=== PATIENT | male | born 1990 | race African-American/Black ===

== ENCOUNTER 2020-02-19 11:36 | Inpatient (IN) | payer OTHER ==
--- NOTE | 2020-02-19 12:23 | BHS.RME ---
Substance Use & Tx History - Substance Use History Alcohol Substance amount: 1/5 rum and 3 x 24 ounce beer Frequency of use: Daily Substance route: Oral Date of Last Use: 02/17/20 - Last Treatment Date of last treatment: this is his first presentation to a detox Physical/Psych/Mental Status - Behavior General Behavior: Increased activity (restlessness, agitation) Eye Contact: Normal - Cooperativeness Cooperativeness: Cooperative - Thinking Thought Processes: Tight Thought content: Future oriented Perceptions: Hallucinations (auditory, visual, olfactory) - Physical Health Problems Is patient presently having any pain?: No Does patient presently have any injuries (include location): No Does patient currently have a fever: No CIWA Nausea/Vomitin-No Nausea/No Vomiting Muscle Tremors: 4-Moderate,w/Arms Extend Anxiety: 3 Agitation: 1-Slight > Activity Paroxysmal Sweats: 3 Orientation: 1-Uncertain about Date Tacttile Disturbances: 1-Very Mild Itch/Numbness Auditory Disturbances: 0-None Visual Disturbances: 0-None Headache: 0-None Present CIWA-Ar Total Score: 13
[2020-02-19 12:56] VITALS: BMI 29.9
--- NOTE | 2020-02-19 13:11 | HP ---
CIWA Score Nausea/Vomitin-No Nausea/No Vomiting Muscle Tremors: 4-Moderate,w/Arms Extend Anxiety: 3 Agitation: 1-Slight > Activity Paroxysmal Sweats: 3 Orientation: 1-Uncertain about Date Tacttile Disturbances: 1-Very Mild Itch/Numbness Auditory Disturbances: 0-None Visual Disturbances: 0-None Headache: 0-None Present CIWA-Ar Total Score: 13 - Admission Criteria OASAS Guidelines: Admission for Medically Managed Detox: Requires at least one of the followin. CIWA greater than 12 2. Seizures within the past 24 hours 3. Delirium tremens within the past 24 hours 4. Hallucinations within the past 24 hours 5. Acute intervention needed for co occurring medical disorder 6. Acute intervention needed for co occurring psychiatric disorder 7. Severe withdrawal that cannot be handled at a lower level of care (continued vomiting, continued diarrhea, abnormal vital signs) requiring intravenous medication and/or fluids 8. Admitting History and Physical - Admission Chief Complaint: Patient is a 29 year old male with history of eczema alcohol use disorder, presents for detox. History of Present Illness: Patient is a 29 year old male with history of eczema alcohol use disorder, presents for detox. PMH: eczema (hands, and lower extremities) PSH: denies Social: lives with parents in house, in [facility]. Psych: endorses history of anxiety, depression, visual hallucinations (dark shadow -ongoing for past two years). Legal: denies This is patient's first presentation for detox at this facility. - Substance Use History Alcohol Substance amount: 1/5 rum and 3 x 24 ounce beer Frequency of use: Daily Substance route: Oral Date of Last Use: 02/17/20 - Last Treatment Date of last treatment: this is his first presentation to a detox History Source: Patient Limitations to Obtaining History: No Limitations - Past Medical History Dermatology: Yes: Eczema - Smoking History Smoking history: Current some day smoker Have you smoked in the past 12 months: No - Alcohol/Substance Use Hx Alcohol Use: Yes - Social History Usual Living Arrangement: Yes: With Parent ADL: Independent History of Recent Travel: No Admission ROS [facility] - [facility] Chief Complaint: Patient is a 29 year old male with history of eczema alcohol use disorder, presents for detox. Allergies/Adverse Reactions: Allergies Allergy/AdvReac Type Severity Reaction Status Date / Time No Known Allergies Allergy Verified 02/19/20 12:52 Exam Limitations: No Limitations - Ebola screening Have you traveled outside of the country in the last 21 days: No Have you been sick,other than usual withdrawal symptoms: No Do you have a fever: No - Review of Systems Constitutional: No Symptoms Reported EENT: denies: Blurred Vision, Hearing Loss Respiratory: denies: Cough, Shortness of Breath Cardiac: denies: Chest Pain, Palpitations GI: denies: Nausea, Vomiting, Abdominal cramping : denies: Burning, Dysuria Musculoskeletal: denies: Back Pain, Joint Pain Integumentary: reports: Other (eczema bilateral hands, lower extremities) Neuro: denies: Headache, Numbness, Paresthesia, Weakness Hematology: denies: Blood Clots, Easy Bleeding Psychiatric: reports: Anxious, Depressed, other (denies suicidal, homicidal ideation) Patient History - Patient Medical History Hx Asthma: Yes (CHILDHOOD) Hx Chronic Obstructive Pulmonary Disease (COPD): No Hx Cancer: No Hx Cardiac Disorders: No Hx Congestive Heart Failure: No Hx Hypertension: No Hx Hypercholesterolemia: No Hx Pacemaker: No HX Cerebrovascular Accident: No Hx Seizures: Yes (ALCOHOL RLT 1 YR AGO) Hx Diabetes: No Hx Gastrointestinal Disorders: No Hx Genitourinary Disorders: No Hx Sexually Transmitted Disorders: No Hx Renal Disease (ESRD): No Hx Thyroid Disease: No Hx Human Immunodeficiency Virus (HIV): No Hx Hepatitis C: No Hx Depression: Yes Hx Suicide Attempt: No Hx Bipolar Disorder: No Hx Schizophrenia: No - Patient Surgical History Past Surgical History: No Hx Neurologic Surgery: No Hx Cataract Extraction: No Hx Cardiac Surgery: No Hx Lung Surgery: No Hx Breast Surgery: No Hx Breast Biopsy: No Hx Abdominal Surgery: No Hx Appendectomy: No Hx Cholecystectomy: No Hx Genitourinary Surgery: No Hx Section: No Hx Orthopedic Surgery: No Anesthesia Reaction: No - PPD History Previous Implant?: No Implanted On Prior R Admission?: No PPD to be Administered?: Yes - Reproductive History Patient is a Female of Child Bearing Age (11 -55 yrs old): No - Smoking Cessation Smoking history: Current some day smoker Have you smoked in the past 12 months: Yes Cigars Per Day: 1 Hx Chewing Tobacco Use: No Initiated information on smoking cessation: Yes 'Breaking Loose' booklet given: 02/19/20 - Substance & Tx. History Hx Alcohol Use: Yes Hx Substance Use: No - Substances abused Alcohol Substance route: Oral Frequency: Daily Amount used: RUM HALF PT AND BEERS 3X 24OZ Age of first use: 14 Date of last use: 02/17/20 Admission Physical Exam [facility] - Vital Signs Vital Signs: Vital Signs - 24 hr 02/19/20 12:52 Temperature 98.0 F Pulse Rate 109 H Respiratory 19 Rate Blood Pressure 147/83 - Physical General Appearance: Yes: Mild Distress, Anxious HEENTM: Yes: Normocephalic, Normal Voice, JUAN Respiratory: Yes: Lungs Clear, No Respiratory Distress, No Accessory Muscle Use Neck: Yes: Supple Breast: Yes: Breast Exam Deferred Cardiology: Yes: Regular Rhythm, Regular Rate, S1, S2 Abdominal: Yes: Normal Bowel Sounds, Non Tender, Flat, Soft Musculoskeletal: Yes: Within Normal Limits, full range of Motion Extremities: Yes: Within Normal Limits, Normal Range of Motion Neurological: Yes: waxer II-XII NML intact, Alert, Motor Strength 5/5 Integumentary: Yes: Dry, Warm - Diagnostic (1) Alcohol dependence with withdrawal, uncomplicated Current Visit: Yes Status: Acute (2) Depression Current Visit: No Status: Chronic Qualifiers: Depression Type: unspecified Qualified Code(s): F32.9 - Major depressive disorder, single episode, unspecified (3) Anxiety Current Visit: No Status: Chronic (4) Eczema Current Visit: No Status: Chronic Qualifiers: Eczema type: unspecified Qualified Code(s): L30.9 - Dermatitis, unspecified Cleared for Admission [facility] - Detox or Rehab [facility] Level of Care: Medically Managed Detox Regimen/Protocol: Librium Claeared for Rehab Admission: No Screened but not Admitted - Documentation of Visit Screened but not Admitted: No Breathalyzer - Breathalyzer Breathalyzer: 0 Urine Drug Screen - Test Device Lot number: [id number] Expiration date: 02/08/22 - Control Is test valid?: Yes - Results Drug screen NEGATIVE: Yes Inpatient Rehab Admission - Rehab Decision to Admit Inpatient rehab admission?: No
[2020-02-19] MEDS ORDERED: MAG HYDROX/AL HYDROX/SIMETH 30 ML UNIT-DOSE CUP PO PRN (13:15)
[2020-02-19] MEDS ORDERED: IBUPROFEN 400 MG TABLET (FP) PO PRN (13:15)
[2020-02-19] MEDS ORDERED: MAGNESIUM HYDROX 2400MG/30ML ORAL SUSPENSION 30 ML CUP PO PRN (13:15)
[2020-02-19] MEDS ORDERED: MENTHOL/PHENOL 1 EACH UD MM PRN (13:15)
[2020-02-19] MEDS ORDERED: MAGNESIUM CITRATE 300 ML BOTTLE PO PRN (13:15)
[2020-02-19] MEDS ORDERED: ACETAMINOPHEN 325 MG TABLET (FP) PO PRN ×2 (13:15)
[2020-02-19] MEDS ORDERED: ONDANSETRON *ODT* 4 MG TABLET SL PRN (13:15)
[2020-02-19] MEDS ORDERED: METHOCARBAMOL 500 MG TABLET PO PRN (13:15)
[2020-02-19] MEDS ORDERED: NICOTINE POLACRILEX 2 MG GUM BUC PRN (13:15)
[2020-02-19] MEDS ORDERED: chlordiazePOXIDE HCL 25 MG CAPSULE PO PRN (13:15)
[2020-02-19] MEDS ORDERED: BISMUTH SUBSALICYLATE 262 MG/15 ML BTL PO PRN (13:15)
--- NOTE | 2020-02-19 15:26 | PN ---
Teaching Attending Note Name of Resident: Black Prater ATTENDING PHYSICIAN STATEMENT I saw and evaluated the patient. I reviewed the resident's note and discussed the case with the resident. I agree with the resident's findings and plan as documented. SUBJECTIVE: OBJECTIVE: ASSESSMENT AND PLAN: 1. Alcohol use disorder, withdrawal Plan 1. Librium detox protocol
[2020-02-19] MEDS: hydrOXYzine PAMOATE 25 MG CAPSULE (FP) PO SCH ×3 (15:42→22:26)
--- NOTE | 2020-02-19 15:47 | EKG ---
Test Reason : Blood Pressure : / mmHG Vent. Rate : 091 BPM Atrial Rate : 091 BPM P-R Int : 128 ms QRS Dur : 090 ms QT Int : 444 ms P-R-T Axes : 055 -06 -27 degrees QTc Int : 546 ms NORMAL SINUS RHYTHM WITH SINUS ARRHYTHMIA MINIMAL VOLTAGE CRITERIA FOR LVH, MAY BE NORMAL VARIANT T WAVE ABNORMALITY, CONSIDER ANTEROLATERAL ISCHEMIA PROLONGED QT ABNORMAL ECG NO PREVIOUS ECGS AVAILABLE Confirmed by ARON ORDONEZ, TERESA ([id number]) on 02/19/2020 3:47:00 PM Referred By: Confirmed By:TERESA SHARP MD
[2020-02-19 16:44] LABS: HEMATOCRIT 40.5 % (35.4-49); HEMOGLOBIN 13.5 GM/dL (11.7-16.9); MCH 34.5 pg (25.7-33.7); MCHC 33.3 g/dl (32.0-35.9); MEAN CELL VOLUME 103.8 fl (80-96); MEAN PLT VOLUME 11.2 fl (7.5-11.1); PLATELET COUNT 216 K/MM3 (134-434); RDW 14.8 % (11.9-15.9); WHITE BLOOD COUNT 5.1 K/mm3 (4.0-10.0)
[2020-02-19 17:03] LABS: ALBUMIN 3.8 g/dl (3.4-5.0); BILIRUBIN,TOTAL 1.5 mg/dL (0.2-1); BLOOD UREA NITROGEN 16.1 mg/dL (7-18); CALCIUM 8.8 mg/dL (8.5-10.1); CREATININE 1.3 mg/dL (0.55-1.3); POTASSIUM 4.2 mmol/L (3.5-5.1); TOT PROT 7.6 g/dl (6.4-8.2)
[2020-02-19] MEDS: chlordiazePOXIDE HCL 25 MG CAPSULE PO SCH ×2 (17:52→22:26)
[2020-02-19] MEDS: THIAMINE HCL 100 MG TABLET (FP) PO SCH (22:26)
[2020-02-19] MEDS: MELATONIN 5 MG TABLETS PO SCH (22:26)
[2020-02-20] MEDS: chlordiazePOXIDE HCL 25 MG CAPSULE PO SCH ×4 (05:34→22:12)
[2020-02-20] MEDS: hydrOXYzine PAMOATE 25 MG CAPSULE (FP) PO SCH ×5 (05:34→22:12)
--- NOTE | 2020-02-20 10:11 | PN ---
S CIWA - CIWA Score Nausea/Vomitin-No Nausea/No Vomiting Muscle Tremors: None Anxiety: 3 Agitation: 0-Normal Activity Paroxysmal Sweats: 3 Orientation: 0-Oriented Tacttile Disturbances: 0-None Auditory Disturbances: 0-None Visual Disturbances: 0-None Headache: 2-Mild CIWA-Ar Total Score: 8 BHS Progress Note (SOAP) Subjective: c/o anxiety, sweats, headache, and interrupted sleep. Objective: 02/20/20 10:06 Vital Signs 02/20/20 02/20/20 05:29 08:26 Temperature 97.1 F L 98.6 F Pulse Rate 44 L 48 L Respiratory 18 18 Rate Blood Pressure 155/93 144/78 O2 Sat by Pulse 96 Oximetry (%) Laboratory Last Values WBC 5.1 K/mm3 (4.0-10.0) 02/19/20 13:40 RBC 3.90 M/mm3 (4.00-5.60) L 02/19/20 13:40 Hgb 13.5 GM/dL (11.7-16.9) 02/19/20 13:40 Hct 40.5 % (35.4-49) 02/19/20 13:40 MCV 103.8 fl (80-96) H 02/19/20 13:40 MCH 34.5 pg (25.7-33.7) H 02/19/20 13:40 MCHC 33.3 g/dl (32.0-35.9) 02/19/20 13:40 RDW 14.8 % (11.9-15.9) 02/19/20 13:40 Plt Count 216 K/MM3 (134-434) 02/19/20 13:40 MPV 11.2 fl (7.5-11.1) H 02/19/20 13:40 Sodium 139 mmol/L (136-145) 02/19/20 13:40 Potassium 4.2 mmol/L (3.5-5.1) 02/19/20 13:40 Chloride 100 mmol/L (98-107) 02/19/20 13:40 Carbon Dioxide 29 mmol/L (21-32) 02/19/20 13:40 Anion Gap 10 MMOL/L (8-16) 02/19/20 13:40 BUN 16.1 mg/dL (7-18) 02/19/20 13:40 Creatinine 1.3 mg/dL (0.55-1.3) 02/19/20 13:40 Est GFR (CKD-EPI)AfAm 84.86 02/19/20 13:40 Est GFR (CKD-EPI)NonAf 73.22 02/19/20 13:40 Random Glucose 118 mg/dL (74-106) H 02/19/20 13:40 Calcium 8.8 mg/dL (8.5-10.1) 02/19/20 13:40 Total Bilirubin 1.5 mg/dL (0.2-1) H 02/19/20 13:40 AST 37 U/L (15-37) 02/19/20 13:40 ALT 29 U/L (13-61) 02/19/20 13:40 Alkaline Phosphatase 118 U/L (45-117) H 02/19/20 13:40 Total Protein 7.6 g/dl (6.4-8.2) 02/19/20 13:40 Albumin 3.8 g/dl (3.4-5.0) 02/19/20 13:40 Syphilis Serology Non-reactive (NONREACTIVE) 02/19/20 13:40 COVID-19 (NURY) Not detected (Not Detected) 02/19/20 14:40 Labs noted. Assessment: 02/20/20 10:07 AOX3 and in no acute respiratory distress. Full ROM, ambulating in the unit. Withdrawal symptoms. Noted b/l ue/le dryness. 02/20/20 10:07 02/20/20 10:11 Plan: continue detox. Start Eucerin tp bid.
[2020-02-20] MEDS: PRENATAL VITAMINS W/ FOLIC ACID TABLET (FP) PO SCH (10:27)
[2020-02-20] MEDS: NICOTINE 7 MG/24 HOURS TOPICAL PATCH TD SCH (10:27)
--- NOTE | 2020-02-20 10:55 | CONSULT ---
[facility] Psychiatric Consult - Data Date of interview: 02/20/20 Admission source: [facility] Identifying data: First visit to [facility] and admission to [address] [place] [address] for this 29 y/o AA male self-referred for detoxification treatment. EZE issue : alcohol. Patient is single, no dependents, domiciled (lives with his parents), unemployed and supported on odd jobs. Substance Abuse History: Discussed with the patient. EZE profile as follows : Smoking history: Current some day smoker. Have you smoked in the past 12 months: Yes. Cigars Per Day: 1. Hx Chewing Tobacco Use: No. Initiated information on smoking cessation: Yes. 'Breaking Loose' booklet given: . - Substance & Tx. History. Hx Alcohol Use: Yes. Hx Substance Use: No. - Substances abused. Alcohol. Substance route: Oral. Frequency: Daily. Amount used: RUM HALF PT AND BEERS 3X 24OZ. Age of first use: 14. Date of last use: 02/17/20. Alcohol. Substance amount: 1/5 rum and 3 x 24 ounce beer. Frequency of use: Daily. Substance route: Oral. Date of Last Use: 02/17/20. - Last Treatment. Date of last treatment: this is his first presentation to a detox. History Source: Patient. Limitations to Obtaining History: No Limitations Medical History: Medical profile is remarkable for eczema and history of withdrawal-related seizures (a year ago). No known allergies. Psychiatric History: Patient denies history of psychiatric hospitalizations, OPD care or suicide attempts. Physical/Sexual Abuse/Trauma History: Patient denies history of abuse. Additional Comment: Toxicology is negative. Mental Status Exam - Mental Status Exam Alert and Oriented to: Time, Place, Person Cognitive Function: Good Patient Appearance: Unkempt, Disheveled Mood: Withdrawn Affect: Mood Congruent, Constricted Patient Behavior: Fatigued, Appropriate, Cooperative Speech Pattern: Clear, Appropriate Voice Loudness: Normal Thought Process: Intact, Goal Oriented Thought Disorder: Not Present Hallucinations: Denies Suicidal Ideation: Denies Homicidal Ideation: Denies Insight/Judgement: Poor Sleep: Poorly, Difficulty falling asleep Appetite: Good Gait/Station: Normal Psychiatric Findings - Problem List ([place] 1, 2,3) (1) Alcohol dependence with withdrawal, uncomplicated Current Visit: Yes Status: Acute (2) Insomnia Current Visit: Yes Status: Chronic - Initial Treatment Plan Initial Treatment Plan: Stable mental status. Psychoeducation. Sleep hygiene. Detoxification in progress. Insomnia is addressed with melatonin at bedtime with the patient's consent. Observation.
[2020-02-20] MEDS: MINERAL OIL/PETROLAT/WATER TOPICAL CREAM 454 GM JAR TP SCH ×2 (11:33→22:13)
[2020-02-20] MEDS: THIAMINE HCL 100 MG TABLET (FP) PO SCH (22:12)
[2020-02-20] MEDS: MELATONIN 5 MG TABLETS PO SCH (22:12)
[2020-02-21] MEDS: hydrOXYzine PAMOATE 25 MG CAPSULE (FP) PO SCH ×5 (05:37→22:17)
[2020-02-21] MEDS: chlordiazePOXIDE HCL 25 MG CAPSULE PO SCH ×4 (05:37→22:17)
[2020-02-21] MEDS: MINERAL OIL/PETROLAT/WATER TOPICAL CREAM 454 GM JAR TP SCH ×2 (10:26→22:17)
[2020-02-21] MEDS: PRENATAL VITAMINS W/ FOLIC ACID TABLET (FP) PO SCH (10:26)
[2020-02-21] MEDS: NICOTINE 7 MG/24 HOURS TOPICAL PATCH TD SCH (10:26)
--- NOTE | 2020-02-21 13:00 | PN ---
S CIWA - CIWA Score Nausea/Vomitin-No Nausea/No Vomiting Muscle Tremors: 2 Anxiety: 3 Agitation: 1-Slight > Activity Paroxysmal Sweats: No Perspiration Orientation: 0-Oriented Tacttile Disturbances: 0-None Auditory Disturbances: 0-None Visual Disturbances: 1-Very Mild Sensitivity Headache: 0-None Present CIWA-Ar Total Score: 7 S Progress Note (SOAP) Subjective: 29 years old male admitted on 02/19/20 for alcohol withdrawal sx management treating with librium detox regiment ate breakfast resting in bed limited conversation with staff Objective: 02/21/20 12:59 Vital Signs - 24 hr 02/20/20 02/20/20 02/21/20 16:30 20:19 06:50 Temperature 97.1 F L 97.1 F L 98.8 F Pulse Rate 46 L 61 75 Respiratory 18 18 18 Rate Blood Pressure 144/79 137/71 130/81 O2 Sat by Pulse 99 99 Oximetry (%) 02/21/20 08:14 Temperature 97.3 F L Pulse Rate 45 L Respiratory 18 Rate Blood Pressure 134/74 O2 Sat by Pulse Oximetry (%) Laboratory Tests 02/19/20 02/19/20 02/19/20 13:40 13:40 13:40 WBC 5.1 RBC 3.90 L Hgb 13.5 Hct 40.5 MCV 103.8 H MCH 34.5 H MCHC 33.3 RDW 14.8 Plt Count 216 MPV 11.2 H Sodium 139 Potassium 4.2 Chloride 100 Carbon Dioxide 29 Anion Gap 10 BUN 16.1 Creatinine 1.3 Est GFR (CKD-EPI)AfAm 84.86 Est GFR (CKD-EPI)NonAf 73.22 Random Glucose 118 H Calcium 8.8 Total Bilirubin 1.5 H AST 37 ALT 29 Alkaline Phosphatase 118 H Total Protein 7.6 Albumin 3.8 Syphilis Serology Non-reactive COVID-19 (NURY) HIV Ag/Ab Combo Qual 02/19/20 02/20/20 14:40 08:30 WBC RBC Hgb Hct MCV MCH MCHC RDW Plt Count MPV Sodium Potassium Chloride Carbon Dioxide Anion Gap BUN Creatinine Est GFR (CKD-EPI)AfAm Est GFR (CKD-EPI)NonAf Random Glucose Calcium Total Bilirubin AST ALT Alkaline Phosphatase Total Protein Albumin Syphilis Serology COVID-19 (NURY) Not detected HIV Ag/Ab Combo Qual Negative lab noted 02/21/20 13:00 glucose elevation fasting glucose Assessment: 02/21/20 13:01 alcohol withdrawal Plan: librium regiment
[2020-02-21] MEDS: THIAMINE HCL 100 MG TABLET (FP) PO SCH (22:17)
[2020-02-21] MEDS: MELATONIN 5 MG TABLETS PO SCH (22:17)
[2020-02-22] MEDS ORDERED: chlordiazePOXIDE HCL 10 MG CAPSULE PO PRN
[2020-02-22] MEDS: hydrOXYzine PAMOATE 25 MG CAPSULE (FP) PO SCH ×5 (05:13→22:19)
[2020-02-22] MEDS: chlordiazePOXIDE HCL 10 MG CAPSULE PO SCH ×4 (05:14→22:19)
[2020-02-22] MEDS: MINERAL OIL/PETROLAT/WATER TOPICAL CREAM 454 GM JAR TP SCH ×2 (10:27→22:18)
[2020-02-22] MEDS: PRENATAL VITAMINS W/ FOLIC ACID TABLET (FP) PO SCH (10:27)
[2020-02-22] MEDS: NICOTINE 7 MG/24 HOURS TOPICAL PATCH TD SCH (10:28)
--- NOTE | 2020-02-22 14:20 | PN ---
S CIWA - CIWA Score Nausea/Vomitin-Mild Nausea/No Vomiting Muscle Tremors: 2 Anxiety: 2 Agitation: 1-Slight > Activity Paroxysmal Sweats: No Perspiration Orientation: 0-Oriented Tacttile Disturbances: 0-None Auditory Disturbances: 0-None Visual Disturbances: 0-None Headache: 2-Mild CIWA-Ar Total Score: 8 BHS Progress Note (SOAP) Subjective: alert,irritable,anxious,interrupted sleep,tremor,pain in the body,aching pain Objective: 02/22/20 17:31 Vital Signs Temperature 96.8 F L 02/22/20 12:41 Pulse Rate 52 L 02/22/20 12:41 Respiratory Rate 20 02/22/20 12:41 Blood Pressure 152/72 02/22/20 12:41 O2 Sat by Pulse Oximetry (%) 100 02/22/20 12:41 Laboratory Results - last 24 hr 02/22/20 08:15 Fasting Glucose 84 Assessment: 02/22/20 17:32 withdrawal symptom Plan: continue detox librium regimen,encourage oral fluid
[2020-02-22] MEDS: THIAMINE HCL 100 MG TABLET (FP) PO SCH (22:19)
[2020-02-22] MEDS: MELATONIN 5 MG TABLETS PO SCH (22:19)
[2020-02-23] MEDS ORDERED: chlordiazePOXIDE HCL 10 MG CAPSULE PO SCH (05:00)
[2020-02-23] MEDS: hydrOXYzine PAMOATE 25 MG CAPSULE (FP) PO SCH (05:01)
[2020-02-23 05:51] VITALS: TEMP 97.1
[2020-02-23 09:23] VITALS: BP 136/67; PULSE 49
--- NOTE | 2020-02-23 14:27 | DS ---
[facility] Detox Discharge Summary Admission Date: 02/19/20 Discharge Date: 02/23/20 - History Present History: Alcohol Dependence Additional Comments: 29 years old male admitted on 02/19/20 for alcohol withdrawal sx management treated with librium detox regiment seen by psychiatrist no medical intervention mr mohamud prefers to leave detox today instead of estimated discharge day of 02/24/[address] [facility] [address] for alcohol recovery General Appearance: Yes: Mild Distress, Anxious HEENTM: Yes: Normocephalic, Normal Voice, JUAN Respiratory: Yes: Lungs Clear, No Respiratory Distress, No Accessory Muscle Use Neck: Yes: Supple Breast: Yes: Breast Exam Deferred Cardiology: Yes: Regular Rhythm, Regular Rate, S1, S2 Abdominal: Yes: Normal Bowel Sounds, Non Tender, Flat, Soft Musculoskeletal: Yes: Within Normal Limits, full range of Motion Extremities: Yes: Within Normal Limits, Normal Range of Motion Neurological: Yes: contract mail 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 NML intact, Alert, Motor Strength 5/5 Integumentary: Yes: Dry, Warm Pertinent Past History: time for discharge 43 minutes treatment team met with mr mohamud to discuss benefits of librium completion mr mohamud prefers to go to [facility] today for alcohol recovery - Physical Exam Results Vital Signs: Vital Signs Temperature 97.1 F L 02/23/20 08:29 Pulse Rate 49 L 02/23/20 08:29 Respiratory Rate 20 02/23/20 08:29 Blood Pressure 136/67 02/23/20 08:29 O2 Sat by Pulse Oximetry (%) 99 02/23/20 06:03 Pertinent Admission Physical Exam Findings: alcohol withdrawal Vital Signs - 24 hr 02/22/20 02/22/20 02/23/20 16:29 20:18 05:51 Temperature 97.1 F L 97.3 F L 97.1 F L Pulse Rate 43 L 89 97 H Respiratory 18 18 18 Rate Blood Pressure 144/77 139/79 109/63 O2 Sat by Pulse 100 99 Oximetry (%) 02/23/20 02/23/20 06:03 08:29 Temperature 97.1 F L 97.1 F L Pulse Rate 97 H 49 L Respiratory 18 20 Rate Blood Pressure 109/63 136/67 O2 Sat by Pulse 99 Oximetry (%) Laboratory Tests 02/19/20 02/19/20 02/19/20 13:40 13:40 13:40 WBC 5.1 RBC 3.90 L Hgb 13.5 Hct 40.5 MCV 103.8 H MCH 34.5 H MCHC 33.3 RDW 14.8 Plt Count 216 MPV 11.2 H Sodium 139 Potassium 4.2 Chloride 100 Carbon Dioxide 29 Anion Gap 10 BUN 16.1 Creatinine 1.3 Est GFR (CKD-EPI)AfAm 84.86 Est GFR (CKD-EPI)NonAf 73.22 Random Glucose 118 H Fasting Glucose Calcium 8.8 Total Bilirubin 1.5 H AST 37 ALT 29 Alkaline Phosphatase 118 H Total Protein 7.6 Albumin 3.8 Syphilis Serology Non-reactive COVID-19 (NURY) HIV Ag/Ab Combo Qual 02/19/20 02/20/20 02/22/20 14:40 08:30 08:15 WBC RBC Hgb Hct MCV MCH MCHC RDW Plt Count MPV Sodium Potassium Chloride Carbon Dioxide Anion Gap BUN Creatinine Est GFR (CKD-EPI)AfAm Est GFR (CKD-EPI)NonAf Random Glucose Fasting Glucose 84 Calcium Total Bilirubin AST ALT Alkaline Phosphatase Total Protein Albumin Syphilis Serology COVID-19 (NURY) Not detected HIV Ag/Ab Combo Qual Negative lab noted - Treatment Hospital Course: Detox Protocol Followed, Detoxed Safely, Responded well, Discharged Condition Good, Rehab Referral Accepted Patient has Accepted a Rehab Referral to: [facility] - Medication Discharge Medications: Ambulatory Orders NK [No Known Home Medication] 02/19/20 - Diagnosis (1) Substance induced mood disorder Status: Suspected (2) Alcohol dependence with withdrawal, uncomplicated Status: Acute - AMA Did Patient Leave Against Medical Advice: No CIWA Score - CIWA Score Nausea/Vomitin-No Nausea/No Vomiting Muscle Tremors: 2 Anxiety: 2 Agitation: 0-Normal Activity Paroxysmal Sweats: No Perspiration Orientation: 0-Oriented Tacttile Disturbances: 0-None Auditory Disturbances: 0-None Visual Disturbances: 0-None Headache: 0-None Present CIWA-Ar Total Score: 4
[2020-02-24] MEDS ORDERED: chlordiazePOXIDE HCL 10 MG CAPSULE PO ONE (05:00)
== END 2020-02-23 09:13 | disposition home or self-care (01) | DRG 775 ==
LOC: YASAS 11:36 → Y3N 12:53
PROVIDERS: ADMIT Allergy & Immunology; ATTEND Allergy & Immunology
PROC: HZ2ZZZZ Detoxification Services for Substance Abuse Treatment (ICD-10-PCS; principal; 2020-02-19)
DX: F10.230 Alcohol dependence with withdrawal, uncomplicated (principal); F17.290 Nicotine dependence, other tobacco product, uncomplicated; F19.24 Other psychoactive substance dependence with psychoactive substance-induced mood disorder; F41.9 Anxiety disorder, unspecified; F32.9 Major depressive disorder, single episode, unspecified; G47.00 Insomnia, unspecified; L30.9 Dermatitis, unspecified; J45.909 Unspecified asthma, uncomplicated; Z86.69 Personal history of other diseases of the nervous system and sense organs; Z56.0 Unemployment, unspecified
CPT/HCPCS: 36415; 80053; 82947; 85027; 86780; 87389; 93005; 93010; U0003